=== PATIENT | female | born 1995 | race African-American/Black ===

== ENCOUNTER 2025-08-03 10:09 | Emergency (ER) | payer BC, SELFPAY ==
[2025-08-03 10:28] VITALS: BP 167/96; PULSE 94; RESP 14; TEMP 36.8; O2SAT 100
--- NOTE | 2025-08-03 11:20 | ED_ITS ---
HPI - General Adult General Chief complaint: Unspecified <CHRISTIANO Wagner - Last Filed: 08/03/25 18:14> Stated complaint: out of insulin, just moved <CHRISTIANO Wagner - Last Filed: 08/03/25 18:14> Time Seen by Provider: 08/03/25 10:24 <CHRISTIANO Wagner - Last Filed: 08/03/25 18:14> History of Present Illness HPI narrative: 30-year-old female presenting with concerns for being able to obtain her daily medications including blood pressure medications, mental health medications, and her diabetic medications. Patient states she just moved here from [place] and has been waiting for her Medicaid card to go see a pcp to obtain her medications. Patient reports she is most concerned about her insulin as it has been a month since she has had any. Patient endorses increased fatigue, polyuria, polydipsia, abdominal pain, and generalized pruritus. She reports that she believes her last A1c was good. Denies chest pain/shortness of breath, fever/chills, nausea/vomiting, or dizziness/LOC. <CHRISTIANO Wagner - Last Filed: 08/03/25 18:14> Related Data Allergies/adverse reactions: Allergies Allergy/AdvReac Type Severity Reaction Status Date / Time Sulfa (Sulfonamide Allergy Hives Verified 08/03/25 10:31 Antibiotics) <CHRISTIANO Wagner - Last Filed: 08/03/25 18:14> Review of Systems 2 Review of Systems: All systems reviewed & are unremarkable except as noted in HPI and below <CHRISTIANO Wagner - Last Filed: 08/03/25 18:14> Exam 2 Narrative: GENERAL: Well-appearing, well-nourished, and in no acute distress. HEAD: Normocephalic, atraumatic. EYES: PERRLA and EOMI. ENT: Nares clear, no rhinorrhea or epistaxis. Mucous membranes moist. Oropharynx without tonsillar hypertrophy exudate or other lesions. Bilateral TMs pearly chapa non-bulging NECK: Supple. No adenopathy or masses. No carotid bruits or JVD CHEST: Clear to auscultation. No respiratory distress. No wheezes rales or rhonchi HEART: Regular rate and rhythm. No murmur heard. Normal peripheral pulses. ABDOMEN: Soft, nontender, nondistended, normal active bowel sounds. EXTREMITIES: Normal range of motion. No edema. SKIN: Warm, dry, no rash. NEURO: No focal deficits. Alert and oriented x3. PSYCH: Normal mood and affect <CHRISTIANO Wagner - Last Filed: 08/03/25 18:14> Course Vital Signs Vital signs: Vital Signs Temperature 98.3 F 08/03/25 10:28 Pulse Rate 94 08/03/25 10:28 Respiratory Rate 14 08/03/25 10:28 Blood Pressure 167/96 H 08/03/25 10:28 Pulse Oximetry 100 08/03/25 10:28 Oxygen Delivery Room Air 08/03/25 10:28 Temperature 98.3 F 08/03/25 10:28 Pulse Rate 68 08/03/25 18:10 Respiratory Rate 18 08/03/25 18:10 Blood Pressure 150/99 H 08/03/25 18:10 Pulse Oximetry 99 08/03/25 18:10 Oxygen Delivery Room Air 08/03/25 10:28 <CHRISTIANO Wagner - Last Filed: 08/03/25 18:14> Vital Signs Temperature 98.3 F 08/03/25 10:28 Pulse Rate 94 08/03/25 10:28 Respiratory Rate 14 08/03/25 10:28 Blood Pressure 167/96 H 08/03/25 10:28 Pulse Oximetry 100 08/03/25 10:28 Oxygen Delivery Room Air 08/03/25 10:28 Temperature 98.3 F 08/03/25 10:28 Pulse Rate 68 08/03/25 18:10 Respiratory Rate 18 08/03/25 18:10 Blood Pressure 150/99 H 08/03/25 18:10 Pulse Oximetry 99 08/03/25 18:10 Oxygen Delivery Room Air 08/03/25 10:28 <Ghulam Blair MD - Last Filed: 08/03/25 20:11> Medical Decision Making MDM Narrative Medical decision making narrative: 30-year-old female presenting with concerns for being able to obtain her daily medications including blood pressure medications, mental health medications, and her diabetic medications. Patient states she just moved here from [place] and has been waiting for her Medicaid card to go see a pcp to obtain her medications. Patient reports she is most concerned about her insulin as it has been a month since she has had any. Patient endorses increased fatigue, urinary urgency, polydipsia, and generalized pruritus. She reports that she believes her last A1c was good. Denies chest pain/shortness of breath, fever/chills, nausea/vomiting, or dizziness/LOC. Patient is sitting comfortably upon initial assessment. Cbc within normal limits. Creatinine within normal limits. Mild electrolyte abnormalities but no anion gap. Serum glucose is 435. Mild proteinuria and glucosuria but no ketones. Patient reports urinary symptoms and urinalysis was positive consistent with urinary tract infection. Will treat outpatient with Keflex. AST 294, ALT 755, and ALT 766. Patient had no reproducible tenderness to RUQ on palpation. Low clinical concern for additional evaluation. Likely fatty liver disease secondary to T2DM. Oral rehydration with 1 L LR. Re-evaluation of blood sugar 324. Given 4U rapid-acting insulin while in ED. Could not obtain reliable information from [facility] or other clinic patient was seen in back in [place] for insulin dosing and instructions. Discussed this with patient and patient endorsed that she would call her primary immediately tomorrow to obtain her medicine. Shared decision making utilized. Patient has been without insulin for approximately 1 month but has not developed DKA. After discussion of risks and benefits, patient agrees it is reasonable to wait a few more days to follow up with her primary care provider for insulin refill. Patient maintains a nontoxic appearance and is in no distress---comfortable with discharge home and close follow-up with PCP. Patient also denies SI/HI or any acute hypertension symptoms. Maintains she is comfortable with obtaining these from pcp. <CHRISTIANO Wagner - Last Filed: 08/03/25 18:14> 30-year-old female presenting with concerns for being able to obtain her daily medications including blood pressure medications, mental health medications, and her diabetic medications. Patient states she just moved here from [place] and has been waiting for her Medicaid card to go see a pcp to obtain her medications. Patient reports she is most concerned about her insulin as it has been a month since she has had any. Patient endorses increased fatigue, urinary urgency, polydipsia, and generalized pruritus. She reports that she believes her last A1c was good. Denies chest pain/shortness of breath, fever/chills, nausea/vomiting, or dizziness/LOC. Patient is sitting comfortably upon initial assessment. Cbc within normal limits. Creatinine within normal limits. Mild electrolyte abnormalities but no anion gap. Serum glucose is 435. Mild proteinuria and glucosuria but no ketones. Patient reports urinary symptoms and urinalysis was positive consistent with urinary tract infection. Will treat outpatient with Keflex. AST 294, ALT 755, and ALT 766. Patient had no reproducible tenderness to RUQ on palpation. Low clinical concern for additional evaluation. Likely fatty liver disease secondary to T2DM. Oral rehydration with 1 L LR. Re-evaluation of blood sugar 324. Given 4U rapid-acting insulin while in ED. Could not obtain reliable information from [facility] or other clinic patient was seen in back in [place] for insulin dosing and instructions. Discussed this with patient and patient endorsed that she would call her primary immediately tomorrow to obtain her medicine. Shared decision making utilized. Patient has been without insulin for approximately 1 month but has not developed DKA. After discussion of risks and benefits, patient agrees it is reasonable to wait a few more days to follow up with her primary care provider for insulin refill. Patient maintains a nontoxic appearance and is in no distress---comfortable with discharge home and close follow-up with PCP. Patient also denies SI/HI or any acute hypertension symptoms. Maintains she is comfortable with obtaining these from pcp. This visit was performed by both a physician and an APC. I performed all aspects of the MDM as documented. <Ghulam Blair MD - Last Filed: 08/03/25 20:11> Medical Records Medical records reviewed: Yes I reviewed the external patient's medical records. <CHRISTIANO Wagner - Last Filed: 08/03/25 18:14> Vital Signs Vital Signs: Vital Signs Temperature 98.3 F 08/03/25 10:28 Pulse Rate 94 08/03/25 10:28 Respiratory Rate 14 08/03/25 10:28 Blood Pressure 167/96 H 08/03/25 10:28 Pulse Oximetry 100 08/03/25 10:28 Oxygen Delivery Room Air 08/03/25 10:28 Temperature 98.3 F 08/03/25 10:28 Pulse Rate 68 08/03/25 18:10 Respiratory Rate 18 08/03/25 18:10 Blood Pressure 150/99 H 08/03/25 18:10 Pulse Oximetry 99 08/03/25 18:10 Oxygen Delivery Room Air 08/03/25 10:28 <CHRISTIANO Wagner - Last Filed: 08/03/25 18:14> Vital Signs Temperature 98.3 F 08/03/25 10:28 Pulse Rate 94 08/03/25 10:28 Respiratory Rate 14 08/03/25 10:28 Blood Pressure 167/96 H 08/03/25 10:28 Pulse Oximetry 100 08/03/25 10:28 Oxygen Delivery Room Air 08/03/25 10:28 Temperature 98.3 F 08/03/25 10:28 Pulse Rate 68 08/03/25 18:10 Respiratory Rate 18 08/03/25 18:10 Blood Pressure 150/99 H 08/03/25 18:10 Pulse Oximetry 99 08/03/25 18:10 Oxygen Delivery Room Air 08/03/25 10:28 <Ghulam Blair MD - Last Filed: 08/03/25 20:11> Lab Data Lab results reviewed: Yes I reviewed the patient's lab results. <CHRISTIANO Wagner - Last Filed: 08/03/25 18:14> Result diagrams: 08/03/25 11:51 08/03/25 11:51 <CHRISTIANO Wagner - Last Filed: 08/03/25 18:14> Labs: Lab Results 08/03/25 08/03/25 08/03/25 Range/Units 11:35 11:51 16:31 WBC 6.4 (4.5-10.0) K/mm3 RBC 4.79 (4.2-5.4) M/mm3 Hgb 12.6 (12.0-15.0) g/dL Hct 40.3 (37.0-47.0) % MCV 84.1 (80-100) fl MCH 26.3 (26-34) pg MCHC 31.3 L (32-36) g/dl RDW 13.4 (11.5-14.5) % Plt Count 173 (150-375) k/mm3 MPV 14.2 H (7.4-10.4) fl Immature Gran % (Auto) 0.3 (0-0.5) % Neut % (Auto) 58.2 (45.5-73.1) % Lymph % (Auto) 35.9 (18.3-44.2) % [place] % (Auto) 3.4 (2.6-8.5) % Eos % (Auto) 1.7 (0-4.4) % Baso % (Auto) 0.5 (0.2-1.2) % Lymph # (Auto) 2.29 (0.9-3.2) K/mm3 [place] # (Auto) 0.2 (0.1-0.6) K/mm3 Eos # (Auto) 0.1 (0-0.3) K/mm3 Baso # (Auto) 0.0 (0.0-0.1) K/mm3 Abs Immat Gran (auto) 0.02 (0.00-0.031) K/mm3 Absolute Neuts (auto) 3.7 (1.3-6.7) K/mm3 Absolute Nucleated RBC 0.000 (0.0-0.012) K/mm3 Nucleated RBC % 0.0 (0.0-0.2) % % Immature Plt Fraction 18.7 H (0.9-11.2) % Sodium 131 L (137-145) mmol/L Potassium 5.2 H (3.4-5.0) mmol/L Chloride 97 L (98-107) mmol/L Carbon Dioxide 27 (22-30) mmol/L Anion Gap 7 (4-12) mmol/L BUN 22 H (7-17) mg/dL Creatinine 0.91 (0.7-1.0) mg/dL Estim Creat Clear Calc 99 ml/min Estimated GFR > 60 (59 - ) Glucose 435 H (65-110) mg/dL POC Capillary Glucose 324 H (65-105) mg/dl Calcium 9.7 (8.4-10.2) mg/dL Total Bilirubin 1.0 (0.2-1.3) mg/dL AST 294 H (14-36) U/L ALT 755 H (6-35) U/L Alkaline Phosphatase 766 H (38-126) U/L Total Protein 8.4 H (6.3-8.2) g/dL Albumin 4.5 (3.5-5.1) g/dL Urine Color Yellow (Yellow) Urine Appearance Cloudy H (Clear) Urine pH 6.0 (5.0-9.0) Ur Specific [place] 1.032 (1.001-1.035) Urine Protein 2+ H (Negative) mg/dL Urine Glucose (UA) 3+ H (Negative) mg/dL Urine Ketones Negative (Negative) mg/dL Ur Blood (Man) 1+ H (Negative) Urine Nitrate Negative (Negative) Urine Bilirubin Negative (Negative) Urine Urobilinogen 1.0 (<2.0) mg/dL Leukocyte Esterase Rfl 1+ H (Negative) IAN/UL Urine RBC 0-2 (0-2) /hpf Urine WBC >100 H (0-3) /hpf Ur Squamous Epith Cells Occasional (Few) /hpf Urine Bacteria 4+ H /hpf Urine Casts 0-2 08/03/25 Range/Units 17:25 WBC (4.5-10.0) K/mm3 RBC (4.2-5.4) M/mm3 Hgb (12.0-15.0) g/dL Hct (37.0-47.0) % MCV (80-100) fl MCH (26-34) pg MCHC (32-36) g/dl RDW (11.5-14.5) % Plt Count (150-375) k/mm3 MPV (7.4-10.4) fl Immature Gran % (Auto) (0-0.5) % Neut % (Auto) (45.5-73.1) % Lymph % (Auto) (18.3-44.2) % [place] % (Auto) (2.6-8.5) % Eos % (Auto) (0-4.4) % Baso % (Auto) (0.2-1.2) % Lymph # (Auto) (0.9-3.2) K/mm3 [place] # (Auto) (0.1-0.6) K/mm3 Eos # (Auto) (0-0.3) K/mm3 Baso # (Auto) (0.0-0.1) K/mm3 Abs Immat Gran (auto) (0.00-0.031) K/mm3 Absolute Neuts (auto) (1.3-6.7) K/mm3 Absolute Nucleated RBC (0.0-0.012) K/mm3 Nucleated RBC % (0.0-0.2) % % Immature Plt Fraction (0.9-11.2) % Sodium (137-145) mmol/L Potassium (3.4-5.0) mmol/L Chloride (98-107) mmol/L Carbon Dioxide (22-30) mmol/L Anion Gap (4-12) mmol/L BUN (7-17) mg/dL Creatinine (0.7-1.0) mg/dL Estim Creat Clear Calc ml/min Estimated GFR (59 - ) Glucose (65-110) mg/dL POC Capillary Glucose 326 H (65-105) mg/dl Calcium (8.4-10.2) mg/dL Total Bilirubin (0.2-1.3) mg/dL AST (14-36) U/L ALT (6-35) U/L Alkaline Phosphatase (38-126) U/L Total Protein (6.3-8.2) g/dL Albumin (3.5-5.1) g/dL Urine Color (Yellow) Urine Appearance (Clear) Urine pH (5.0-9.0) Ur Specific [place] (1.001-1.035) Urine Protein (Negative) mg/dL Urine Glucose (UA) (Negative) mg/dL Urine Ketones (Negative) mg/dL Ur Blood (Man) (Negative) Urine Nitrate (Negative) Urine Bilirubin (Negative) Urine Urobilinogen (<2.0) mg/dL Leukocyte Esterase Rfl (Negative) IAN/UL Urine RBC (0-2) /hpf Urine WBC (0-3) /hpf Ur Squamous Epith Cells (Few) /hpf Urine Bacteria /hpf Urine Casts <CHRISTIANO Wagner - Last Filed: 08/03/25 18:14> Lab Results 08/03/25 08/03/25 08/03/25 Range/Units 11:35 11:51 16:31 WBC 6.4 (4.5-10.0) K/mm3 RBC 4.79 (4.2-5.4) M/mm3 Hgb 12.6 (12.0-15.0) g/dL Hct 40.3 (37.0-47.0) % MCV 84.1 (80-100) fl MCH 26.3 (26-34) pg MCHC 31.3 L (32-36) g/dl RDW 13.4 (11.5-14.5) % Plt Count 173 (150-375) k/mm3 MPV 14.2 H (7.4-10.4) fl Immature Gran % (Auto) 0.3 (0-0.5) % Neut % (Auto) 58.2 (45.5-73.1) % Lymph % (Auto) 35.9 (18.3-44.2) % [place] % (Auto) 3.4 (2.6-8.5) % Eos % (Auto) 1.7 (0-4.4) % Baso % (Auto) 0.5 (0.2-1.2) % Lymph # (Auto) 2.29 (0.9-3.2) K/mm3 [place] # (Auto) 0.2 (0.1-0.6) K/mm3 Eos # (Auto) 0.1 (0-0.3) K/mm3 Baso # (Auto) 0.0 (0.0-0.1) K/mm3 Abs Immat Gran (auto) 0.02 (0.00-0.031) K/mm3 Absolute Neuts (auto) 3.7 (1.3-6.7) K/mm3 Absolute Nucleated RBC 0.000 (0.0-0.012) K/mm3 Nucleated RBC % 0.0 (0.0-0.2) % % Immature Plt Fraction 18.7 H (0.9-11.2) % Sodium 131 L (137-145) mmol/L Potassium 5.2 H (3.4-5.0) mmol/L Chloride 97 L (98-107) mmol/L Carbon Dioxide 27 (22-30) mmol/L Anion Gap 7 (4-12) mmol/L BUN 22 H (7-17) mg/dL Creatinine 0.91 (0.7-1.0) mg/dL Estim Creat Clear Calc 99 ml/min Estimated GFR > 60 (59 - ) Glucose 435 H (65-110) mg/dL POC Capillary Glucose 324 H (65-105) mg/dl Calcium 9.7 (8.4-10.2) mg/dL Total Bilirubin 1.0 (0.2-1.3) mg/dL AST 294 H (14-36) U/L ALT 755 H (6-35) U/L Alkaline Phosphatase 766 H (38-126) U/L Total Protein 8.4 H (6.3-8.2) g/dL Albumin 4.5 (3.5-5.1) g/dL Urine Color Yellow (Yellow) Urine Appearance Cloudy H (Clear) Urine pH 6.0 (5.0-9.0) Ur Specific [place] 1.032 (1.001-1.035) Urine Protein 2+ H (Negative) mg/dL Urine Glucose (UA) 3+ H (Negative) mg/dL Urine Ketones Negative (Negative) mg/dL Ur Blood (Man) 1+ H (Negative) Urine Nitrate Negative (Negative) Urine Bilirubin Negative (Negative) Urine Urobilinogen 1.0 (<2.0) mg/dL Leukocyte Esterase Rfl 1+ H (Negative) IAN/UL Urine RBC 0-2 (0-2) /hpf Urine WBC >100 H (0-3) /hpf Ur Squamous Epith Cells Occasional (Few) /hpf Urine Bacteria 4+ H /hpf Urine Casts 0-2 11// Range/Units 17:25 WBC (4.5-10.0) K/mm3 RBC (4.2-5.4) M/mm3 Hgb (12.0-15.0) g/dL Hct (37.0-47.0) % MCV (80-100) fl MCH (26-34) pg MCHC (32-36) g/dl RDW (11.5-14.5) % Plt Count (150-375) k/mm3 MPV (7.4-10.4) fl Immature Gran % (Auto) (0-0.5) % Neut % (Auto) (45.5-73.1) % Lymph % (Auto) (18.3-44.2) % [place] % (Auto) (2.6-8.5) % Eos % (Auto) (0-4.4) % Baso % (Auto) (0.2-1.2) % Lymph # (Auto) (0.9-3.2) K/mm3 [place] # (Auto) (0.1-0.6) K/mm3 Eos # (Auto) (0-0.3) K/mm3 Baso # (Auto) (0.0-0.1) K/mm3 Abs Immat Gran (auto) (0.00-0.031) K/mm3 Absolute Neuts (auto) (1.3-6.7) K/mm3 Absolute Nucleated RBC (0.0-0.012) K/mm3 Nucleated RBC % (0.0-0.2) % % Immature Plt Fraction (0.9-11.2) % Sodium (137-145) mmol/L Potassium (3.4-5.0) mmol/L Chloride (98-107) mmol/L Carbon Dioxide (22-30) mmol/L Anion Gap (4-12) mmol/L BUN (7-17) mg/dL Creatinine (0.7-1.0) mg/dL Estim Creat Clear Calc ml/min Estimated GFR (59 - ) Glucose (65-110) mg/dL POC Capillary Glucose 326 H (65-105) mg/dl Calcium (8.4-10.2) mg/dL Total Bilirubin (0.2-1.3) mg/dL AST (14-36) U/L ALT (6-35) U/L Alkaline Phosphatase (38-126) U/L Total Protein (6.3-8.2) g/dL Albumin (3.5-5.1) g/dL Urine Color (Yellow) Urine Appearance (Clear) Urine pH (5.0-9.0) Ur Specific [place] (1.001-1.035) Urine Protein (Negative) mg/dL Urine Glucose (UA) (Negative) mg/dL Urine Ketones (Negative) mg/dL Ur Blood (Man) (Negative) Urine Nitrate (Negative) Urine Bilirubin (Negative) Urine Urobilinogen (<2.0) mg/dL Leukocyte Esterase Rfl (Negative) IAN/UL Urine RBC (0-2) /hpf Urine WBC (0-3) /hpf Ur Squamous Epith Cells (Few) /hpf Urine Bacteria /hpf Urine Casts <Ghulam Blair MD - Last Filed: 08/03/25 20:11> Critical Care Time Critical Care Time Critical Care Time: No <CHRISTIANO Wagner - Last Filed: 08/03/25 18:14> Discharge Plan Discharge Clinical Impression: Chronic hyperglycemia <CHRISTIANO Wagner - Last Filed: 08/03/25 18:14> Patient Disposition: Home <CHRISTIANO Wagner Last Filed: 08/03/25 18:14> Condition: Stable <CHRISTIANO Wagner - Last Filed: 08/03/25 18:14> Instructions: Type 2 Diabetes Management for Adults (ED) <CHRISTIANO Wagner Last Filed: 08/03/25 18:14> Additional Instructions: Return to the emergency department if you experience fever, chest pain, shortness of breath, abdominal pain with nausea and vomiting, weakness, numbness/tingling, or any other symptoms that are concerning to you. Follow up with primary care doctor <CHRISTIANO Wagner - Last Filed: 08/03/25 18:14> Patient Language: Kazakh <CHRISTIANO Wagner - Last Filed: 08/03/25 18:14> Prescriptions: New cephalexin 250 mg capsule 250 mg PO Q6H Qty: 21 0RF <CHRITSIANO Wagner Last Filed: 08/03/25 18:14> Follow-up/Referrals: PHYSICIAN NOT ON STAFF,NONSTAFF [Primary Care Provider] <CHRISTIANO Wagner - Last Filed: 08/03/25 18:14>
[2025-08-03 11:50] LABS: Add Urine Microscopic? YES; Appearance Urine Cloudy (Clear); Glucose Urine UA 3+ mg/dL (Negative); Leukocyte Esterase Ur 1+ LEU/UL (Negative); Nitrate Urine Negative (Negative); Non Pathogenic Casts 0-2; Specific Grav Ur 1.032 (1.001-1.035)
[2025-08-03 11:59] LABS: Hematocrit 40.3 % (37.0-47.0); Hemoglobin 12.6 g/dL (12.0-15.0); Immature Granulocyte Percent A 0.3 % (0-0.5); Immature Platelet Fraction Pct 18.7 % (0.9-11.2); Lymphocytes Absolute Auto 2.29 K/mm3 (0.9-3.2); Mean Corpuscular HGB Conc 31.3 g/dl (32-36); Mean Corpuscular Hemoglobin 26.3 pg (26-34); Mean Corpuscular Volume 84.1 fl (80-100); Nucleated Red Blood Cells Absolute Auto 0.000 K/mm3 (0.0-0.012); Nucleated Red Blood Cells Perc 0.0 % (0.0-0.2); Platelet Count Result 173 k/mm3 (150-375); Red Blood Count 4.79 M/mm3 (4.2-5.4); White Blood Count 6.4 K/mm3 (4.5-10.0)
[2025-08-03 12:16] LABS: Albumin Level 4.5 g/dL (3.5-5.1); Alkaline Phosphatase 766 U/L (38-126); Anion Gap 7 mmol/L (4-12); Aspartate Amino Transferase 294 U/L (14-36); Bilirubin,Total 1.0 mg/dL (0.2-1.3); Blood Urea Nitrogen 22 mg/dL (7-17); Calcium 9.7 mg/dL (8.4-10.2); Carbon Dioxide 27 mmol/L (22-30); Chloride 97 mmol/L (98-107); Estimated CRCL calculation 99 ml/min; Estimated Glomerular Filt Rate > 60; Glucose 435 mg/dL (65-110); Potassium 5.2 mmol/L (3.4-5.0); Sodium 131 mmol/L (137-145); Total Protein 8.4 g/dL (6.3-8.2)
--- NOTE | 2025-08-03 13:42 | PC.NURSE ---
Pt a difficult stick by two ED RN. Vascular access called
[2025-08-03 14:07] LABS: Alanine Aminotransferase 755 U/L (6-35)
[2025-08-03] MEDS: LACTATED RINGERS 1,000 ML 999 ML IV CONT (14:10)
[2025-08-03 14:24] VITALS: BP 147/105; PULSE 91; RESP 16; O2SAT 99
[2025-08-03] MEDS: INSULIN ASPART (*BKC) 100 UNITS/ML SUB-Q (17:25)
[2025-08-03 18:10] VITALS: BP 150/99; PULSE 68; RESP 18; O2SAT 99
== END 2025-08-03 18:11 | disposition home or self-care (01) ==
DX: E11.65 Type 2 diabetes mellitus with hyperglycemia (principal); I10 Essential (primary) hypertension; Z79.4 Long term (current) use of insulin; Z79.899 Other long term (current) drug therapy
CPT/HCPCS: 36415; 80053; 81001; 82948; 85025; 85055; 87086; 87186; 96360; 99283; J1815; J7120